=== PATIENT | male | born 1990 | race African-American/Black ===

== ENCOUNTER 2024-11-26 10:50 | Emergency (ER) | payer SELFPAY ==
[~2024-11-26] VITALS: Ht 172.7 cm; Wt 59.0 kg
[2024-11-26 10:56] VITALS: BP 111/70; TEMP 98.8; O2SAT 94
[2024-11-26] MEDS ORDERED: CLOB15CR5 TP (11:15)
== END 2024-11-26 11:39 | disposition home or self-care (01) ==
LOC: ER 10:54
DX: L40.9 Psoriasis, unspecified (principal); Z60.2 Problems related to living alone